=== PATIENT | male | born 1980 ===

== ENCOUNTER 2018-08-05 10:54 | Emergency (ER) | payer MEDICAID ==
--- NOTE | 2018-08-05 11:17 | ED PDOC ---
HPI: Psych/Substance Abuse Time Seen by Provider: 08/05/18 11:13 Chief Complaint (Nursing): Psychiatric Evaluation Chief Complaint (Provider): crisis eval History Per: Patient, Family () Additional Complaint(s): 38-year-old male with history of schizoaffective disorder presents for crisis evaluation. states the patient has been refusing to take his Seroquel because it makes him too sleepy. He has not slept in 24 hours and has not had anything to eat in 3 days. states the patient seems to be more internally preoccupied over the past couple of days. No associated alcohol or drug use. states the patient has been compliant with all other medications besides Seroquel. Past Medical History Reviewed: Historical Data, Nursing Documentation, Vital Signs Vital Signs: Last Vital Signs Temp 98.4 F 08/05/18 10:59 Pulse 106 H 08/05/18 10:59 Resp 21 08/05/18 10:59 BP Pulse Ox 97 08/05/18 10:59 - Medical History PMH: Bipolar Disorder, Schizophrenia - Family History Family History: States: No Known Family Hx - Living Arrangements Living Arrangements: With Family - Social History Current smoker - smoking cessation education provided: No Alcohol: None Drugs: Denies - Home Medications Home Medications: Ambulatory Orders Medication Instructions Recorded QUEtiapine [SEROquel] 200 mg PO HS 09/03/14 Divalproex [Depakote ER] 500 mg PO BID 11/03/16 Magnesium Oxide [Magnesium] 500 mg PO DAILY 11/03/16 Melatonin 10 mg PO HS 11/03/16 - Allergies Allergies/Adverse Reactions: Allergies Allergy/AdvReac Type Severity Reaction Status Date / Time No Known Allergies Allergy Verified 08/05/18 11:02 Review of Systems ROS Statement: Except As Marked, All Systems Reviewed And Found Negative Psych: Positive for: Anxiety, Other (crisis eval) Physical Exam - Reviewed Nursing Documentation Reviewed: Yes Vital Signs Reviewed: Yes - Physical Exam Appears: Positive for: Well, Non-toxic, No Acute Distress Skin: Positive for: Normal Color. Negative for: Rash Eye Exam: Positive for: Normal appearance Cardiovascular/Chest: Positive for: Regular Rate, Rhythm Respiratory: Positive for: Normal Breath Sounds. Negative for: Respiratory Distress Extremity: Positive for: Normal ROM Neurologic/Psych: Positive for: Alert, Mood/Affect (Acutely anxious and parano id) - Laboratory Results Result Diagrams: 08/05/18 12:28 08/05/18 16:34 - ECG Interpretation Of ECG: Normal sinus rhythm 93 bpm with no acute finding, reviewed by PA and ED attending. O2 Sat by Pulse Oximetry: 97 Pulse Ox Interpretation: Normal - Other Rad CXR X-Ray: Interpreted by Me, Viewed By Me X-Ray Interpretation: no acute finding Gallbladder US X-Ray: Read By Radiologist X-Ray Interpretation: no acute finding Medical Decision Making Medical Decision Makin38 y/o here for crisis eval PLan: 1:1 - elopement risk Crisis eval CBC CMP BAL UDS UA CXR EKG CMP repeated at bilirubin is high. As per crisis counselor and psychiatrist copper flotation operator Dr. Fried, patient does meet criteria for admission. He is refusing to sign himself in. Patient will require [facility] screen. 2:30 pm: Patient requires additional blood draw but is refusing to allow to have this done. She was becoming increasingly agitated. Haldol 5 mg IM administered. Will try to obtain repeat blood draw after medications administered. Patient's is at bedside. 4:55 pm: Patient is refusing to provide urine sample, refusing to left EKG. Patient still very agitated despite Haldol being administered. Ativan 2 mg IM given and patient was placed in [address] Munoz made aware. 5:03 pm: repeat bilirubin is improved at 2.7 but still elevated. Will order ultrasound to rule out any acute pathology of gallbladder and liver. PT/PTT also ordered. 6:42 pm: US resulted and shows no acute finding. EKG completed and urine obtained. Patient was removed from restraints, will continue to be monitored in ED. 7:22 pm: Patient is medically stable for [facility] evaluation, crisis department made aware. Disposition - Clinical Impression Clinical Impression: Schizoaffective disorder - Patient ED Disposition Is Patient to be Admitted: Transfer of Care - Disposition Disposition: Transfer of Care Disposition Time: 20:00 Condition: FAIR Forms: [employer] (Spanish) Patient Signed Over To: Jihan Dorman Handoff Comments: Signed out pending [facility] evaluation and final disposition Results - Lab Results Lab Results: 08/05/18 08/05/18 08/05/18 18:27 18:27 17:57 WBC RBC Hgb Hct MCV MCH MCHC RDW Plt Count MPV Neut % (Auto) Lymph % (Auto) [place] % (Auto) Eos % (Auto) Baso % (Auto) Neut # (Auto) Lymph # (Auto) [place] # (Auto) Eos # (Auto) Baso # (Auto) PT 12.6 INR 1.1 APTT 26.6 Sodium Potassium Chloride Carbon Dioxide Anion Gap BUN Creatinine Est GFR ( Amer) Est GFR (Non-Af Amer) Random Glucose Calcium Total Bilirubin AST ALT Alkaline Phosphatase Total Protein Albumin Globulin Albumin/Globulin Ratio Urine Color Amanda Urine Clarity Slighty-cloudy Urine pH 6.0 Ur Specific [place] 1.033 H Urine Protein 30 Urine Glucose (UA) Neg Urine Ketones 20 Urine Blood Large Urine Nitrate Negative Urine Bilirubin Negative Urine Urobilinogen 2.0 Ur Leukocyte Esterase Neg Urine RBC (Auto) 44 H Urine Microscopic WBC 3 Ur Squamous Epith Cells < 1 Urine Opiates Screen Negative Urine Methadone Screen Negative Ur Barbiturates Screen Negative Ur Phencyclidine Scrn Negative Ur Amphetamines Screen Negative U Benzodiazepines Scrn Negative U Oth Cocaine Metabols Negative U Cannabinoids Screen Negative Alcohol, Quantitative 08/05/18 08/05/18 08/05/18 16:34 12:28 12:28 WBC 7.8 RBC 5.89 Hgb 15.9 Hct 46.5 MCV 79.0 L MCH 27.0 MCHC 34.2 RDW 13.0 Plt Count 188 MPV 8.6 Neut % (Auto) 74.0 Lymph % (Auto) 19.2 L [place] % (Auto) 6.1 Eos % (Auto) 0.0 Baso % (Auto) 0.7 Neut # (Auto) 5.8 Lymph # (Auto) 1.5 [place] # (Auto) 0.5 Eos # (Auto) 0.0 Baso # (Auto) 0.1 PT INR APTT Sodium 141 142 Potassium 4.3 4.3 Chloride 102 102 Carbon Dioxide 26 25 Anion Gap 17 19 BUN 17 17 Creatinine 0.9 1.1 Est GFR ( Amer) > 60 > 60 Est GFR (Non-Af Amer) > 60 > 60 Random Glucose 120 H 104 Calcium 9.7 10.0 Total Bilirubin 2.7 H 3.2 H AST 26 25 ALT 26 19 L D Alkaline Phosphatase 42 48 Total Protein 8.3 H 9.0 H Albumin 4.6 4.9 Globulin 3.7 4.1 H Albumin/Globulin Ratio 1.2 1.2 Urine Color Urine Clarity Urine pH Ur Specific [place] Urine Protein Urine Glucose (UA) Urine Ketones Urine Blood Urine Nitrate Urine Bilirubin Urine Urobilinogen Ur Leukocyte Esterase Urine RBC (Auto) Urine Microscopic WBC Ur Squamous Epith Cells Urine Opiates Screen Urine Methadone Screen Ur Barbiturates Screen Ur Phencyclidine Scrn Ur Amphetamines Screen U Benzodiazepines Scrn U Oth Cocaine Metabols U Cannabinoids Screen Alcohol, Quantitative < 10
--- NOTE | 2018-08-05 12:15 | RAD ---
Date of service: 08/05/2018 HISTORY: clearance COMPARISON: Chest radiograph dated 11/03/2016. FINDINGS: LUNGS: No active pulmonary disease. PLEURA: No significant pleural effusion identified, no pneumothorax apparent. CARDIOVASCULAR: No aortic atherosclerotic calcification present. Normal cardiac size. No pulmonary vascular congestion. OSSEOUS STRUCTURES: No significant abnormalities. VISUALIZED UPPER ABDOMEN: Normal. OTHER FINDINGS: None. IMPRESSION: No active disease.
[2018-08-05 12:31] LABS: BASO # 0.1 K/uL (0.0-0.2); BASO % 0.7 % (0.0-2.0); HEMOGLOBIN 15.9 g/dL (12.0-18.0); LYMPH # 1.5 K/uL (1.0-4.3); LYMPH % 19.2 % (20.0-40.0); MEAN CORPUSCULAR HGB CONC 34.2 g/dL (33.0-37.0); MEAN PLATELET VOLUME 8.6 fl (7.2-11.7); MONO # 0.5 K/uL (0.0-0.8); MONO % 6.1 % (0.0-10.0); NEUT # 5.8 K/uL (1.8-7.0); RBC 5.89 Mil/uL (4.40-5.90); WHITE BLOOD COUNT 7.8 K/uL (4.8-10.8)
[2018-08-05 12:42] LABS: ALB/GLOB RATIO 1.2 (1.0-2.1); ALBUMIN 4.9 g/dL (3.5-5.0); ALT/SGPT 19 U/L (21-72); AST/SGOT 25 U/L (17-59); BLOOD UREA NITROGEN 17 mg/dl (9-20); GFR NON-AFRICAN AMERICAN > 60
[2018-08-05 16:59] LABS: ALB/GLOB RATIO 1.2 (1.0-2.1); ALBUMIN 4.6 g/dL (3.5-5.0); ALT/SGPT 26 U/L (21-72); AST/SGOT 26 U/L (17-59); BLOOD UREA NITROGEN 17 mg/dl (9-20); CALCIUM 9.7 mg/dL (8.4-10.2); GFR NON-AFRICAN AMERICAN > 60
[2018-08-05 18:14] LABS: INR 1.1; PROTHROMBIN TIME 12.6 Seconds (9.8-13.1)
[2018-08-05 18:17] LABS: PARTIAL THROMBOPLASTIN TIME 26.6 Seconds (25.6-37.1)
--- NOTE | 2018-08-05 18:20 | US ---
Date of service: 08/05/2018 HISTORY: elevated bilirubin COMPARISON: None. TECHNIQUE: Grayscale imaging was performed. FINDINGS: LIVER: Measures 15.1 cm in length. Normal echogenicity of the liver parenchyma. No mass. No intrahepatic bile duct dilatation. GALLBLADDER: There are no gallstones, wall thickening or pericholecystic fluid. The sonographic Cuellar's sign is negative. COMMON BILE DUCT: Measures 5.0 mm. No stones. No dilatation. PANCREAS: Unremarkable as visualized. No mass. No ductal dilatation. RIGHT KIDNEY: Measures 10.9 cm in length. Normal echogenicity. No calculus, mass, or hydronephrosis. AORTA: No aneurysmal dilatation. IVC: Unremarkable. OTHER FINDINGS: None . IMPRESSION: No cholelithiasis or biliary dilatation.
[2018-08-05 19:10] LABS: SQUAMOUS EPITHIAL < 1 /hpf (0-5); URINE BILIRUBIN NEGATIVE (NEGATIVE); URINE BLOOD LARGE (NEGATIVE); URINE CLARITY SLIGHTY-CLOUDY (Clear); URINE COLOR AMBER (YELLOW); URINE GLUCOSE (UA) NEG (Normal); URINE LEUKOCYTE ESTERASE NEG Leu/uL (Negative); URINE PROTEIN 30 mg/dL (NEGATIVE)
[2018-08-05 19:13] LABS: BARBITURATES, UR NEGATIVE (NEGATIVE); BENZODIAZEPINES, UR NEGATIVE (NEGATIVE); OPIATES, UR NEGATIVE (NEGATIVE); PHENCYCLIDINE, UR NEGATIVE (NEGATIVE)
--- NOTE | 2018-08-06 04:28 | ED PDOC ---
- Laboratory Results Result Diagrams: 08/05/18 12:28 08/05/18 16:34 - ECG O2 Sat by Pulse Oximetry: 97 - Progress ED Course And Treament: Case endorsed to proposal manager writer from María Elena DENG pending [facility] eval 21:30 Patient sleeping; no distress 23:00 Patient sleeping; no distress 08/06/18 00:30 Patient sleeping; no distress 2:00 Patient awake, screener at bedside 3:30 Patient awake, no distress 4:30 Patient accepted by [facility], pending available bed Disposition - Clinical Impression Clinical Impression: Schizoaffective disorder - POA Present On Arrival: None - Disposition Disposition: Transfer of Care Disposition Time: 05:00 Condition: STABLE Patient Signed Over To: Tracy Butts Handoff Comments: pending available bed and transfer to [facility]
--- NOTE | 2018-08-06 05:11 | ED PDOC ---
- Laboratory Results Result Diagrams: 08/05/18 12:28 08/05/18 16:34 - ECG O2 Sat by Pulse Oximetry: 97 Medical Decision Making Medical Decision Makin Patient care endorsed from LIVIA Dorman to this provider pending bed availability at [facility]. [id number] Patient care endorsed to Dr. Palacio pending bed availability at [facility]. Scribe Attestation: Documented by Lindsey Suárez, acting as a scribe for Tracy Butts MD. Provider Scribe Attestation: All medical record entries made by the Scribe were at my direction and personally dictated by me. I have reviewed the chart and agree that the record accurately reflects my personal performance of the history, physical exam, medical decision making, and the department course for this patient. I have also personally directed, reviewed, and agree with the discharge instructions and disposition. Disposition - Clinical Impression Clinical Impression: Schizoaffective disorder - POA Present On Arrival: None - Disposition Disposition: Transfer of Care Disposition Time: 07:00 Condition: STABLE Forms: [employer] (Kyrgyz)
--- NOTE | 2018-08-06 06:52 | CARD ---
APPROVED REPORT Date of service: 08/05/2018 EKG Measurement Heart [id number] <Conclusion> Normal sinus rhythm Normal ECG
[2018-08-06 10:24] VITALS: PULSE 79
[2018-08-06 11:32] VITALS: BP 131/70; RESP 17; TEMP 98
[2018-08-06 20:48] VITALS: O2SAT 97
== END 2018-08-06 11:15 | disposition short-term general hospital (02) ==
LOC: H.ER 10:54
DX: F25.9 Schizoaffective disorder, unspecified (principal); F31.9 Bipolar disorder, unspecified
CPT/HCPCS: 71045; 76705; 80053; 80320; 80324; 80345; 80346; 80349; 80353; 80358; 80361; 81003; 83992; 85025; 85610; 85730; 93005; 96372; 99285; J1630; J2060